=== PATIENT | female | born 1995 | race American Indian/Alaskan Native ===

== ENCOUNTER 2019-06-04 02:21 | Emergency (ER) | payer SELFPAY ==
[2019-06-04 03:09] LABS: Basophils % (Auto) 0.6 % (0.0-1.8); Eosinophils # (Auto) 0.1 K/mm3 (0.0-0.4); Eosinophils % (Auto) 1.4 % (0.0-4.3); Hematocrit 35.7 % (30.3-42.9); Lymphocytes # (Auto) 2.4 K/mm3 (1.2-5.4); Lymphocytes % (Auto) 33.6 % (13.4-35.0); Mean Corpuscular HGB Conc 34 % (30-34); Mean Corpuscular Volume 84 fl (79-97); Monocytes # (Auto) 0.4 K/mm3 (0.0-0.8); Monocytes % (Auto) 5.5 % (0.0-7.3); Platelet Count 224 K/mm3 (140-440); Red Blood Count 4.24 M/mm3 (3.65-5.03); Red Cell Distribution Width 13.7 % (13.2-15.2)
[2019-06-04 03:36] LABS: BUN/Creatinine Ratio 17; Blood Urea Nitrogen 20 mg/dL (7-17)
[2019-06-04 03:37] LABS: Alanine Aminotransferase 9 units/L (7-56); Albumin 4.2 g/dL (3.9-5); Calcium 9.3 mg/dL (8.4-10.2); Hemolysis Index 6
[2019-06-04 04:07] LABS: HCG Qualitative,Urine Negative (Negative)
[2019-06-04 04:08] LABS: Bilirubin,Urine NEG (Negative); Blood,Urine NEG (Negative); Color,Urine Yellow (Yellow); Mucus,Urine FEW /HPF; Protein,Urine <15 mg/dL mg/dL (Negative); Urobilinogen,Urine < 2.0 mg/dL (<2.0); WBC,Urine < 1.0 /HPF (0.0-6.0)
[2019-06-04 04:21] VITALS: BP 111/75
[2019-06-04] MEDS ORDERED: ROCEPHIN 250 MG in NACL 0.9% 50 ML IV STA (04:51)
[2019-06-04] MEDS ORDERED: REGLAN IV ONE (04:51)
[2019-06-04] MEDS ORDERED: FLAGYL PO ONE (04:51)
[2019-06-04] MEDS ORDERED: TYLENOL PO ONE (04:51)
[2019-06-04] MEDS ORDERED: NACL 0.9% 1000 ML 1,000 ML IV ONE (04:51)
[2019-06-04] MEDS ORDERED: ZITHROMAX PO ONE (04:51)
--- NOTE | 2019-06-04 04:53 | Emergency Department Report ---
ED General Adult HPI - General Chief complaint: Syncope Stated complaint: SOB FAST HEARTBEAT PASSED TONIGHT Time Seen by Provider: 06/04/19 03:23 Source: patient, RN notes reviewed Mode of arrival: Ambulatory Limitations: No Limitations - History of Present Illness Initial comments: this is a 24-year-old female who is not known to this provider previously. She states she is not , and has not delivered her given within the past 6 weeks. The patient denies DVT, pulmonary embolism risk factors. The patient states he has no chronic medical conditions. The patient does not have a primary care doctor. The patient presents with multiple complaints. The patient reports that she works irregular hours, and only gets 4 hours of sleep per night. She reports that she has a headache, chest tightness, palpitations, shortness of breath and may have lost consciousness. She is also feeling anxious over a recent STD exposure from a sexual partner. The headache is present basically every day. It is frontal, bitemporal and occipital. The headache is not sudden, thunderclap or maximal in intensity at the onset. Patient endorses that she typically wears her contact lenses longer than she supposed to, and this is typically associated with headache pain. She denies eye pain or loss of vision at this time. Patient reports that she felt some palpitations, chest tightness, lightheadedness, and may have almost lost consciousness. She reports chronic palpitations. She is also feeling very anxious over a recent STI exposure. She endorses some dysuria and chronic discharge. She has mild chronic lower abdominal discomfort. She is also asking for empiric STI treatment for chlamydia. -: Gradual Location: head, chest, abdomen Quality: aching Consistency: intermittent Improves with: other Worsens with: other - Related Data Allergies Allergy/AdvReac Type Severity Reaction Status Date / Time No Known Allergies Allergy Verified 06/04/19 02:26 ED Review of Systems ROS: Stated complaint: SOB FAST HEARTBEAT PASSED TONIGHT Other details as noted in HPI Constitutional: denies: fever Eyes: denies: eye discharge Respiratory: denies: wheezing Cardiovascular: chest pain, palpitations, syncope Gastrointestinal: abdominal pain. denies: vomiting Genitourinary: dysuria Musculoskeletal: myalgia Skin: denies: lesions Neurological: headache, weakness Psychiatric: anxiety ED Past Medical Hx - Past Medical History Previous Medical History?: Yes Additional medical history: anemia - Surgical History Past Surgical History?: No - Social History Smoking Status: Never Smoker Substance Use Type: Alcohol ED Physical Exam - General Limitations: No Limitations General appearance: alert, in no apparent distress - Head Head exam: Present: atraumatic, normocephalic - Eye Eye exam: Present: normal appearance, EOMI. Absent: nystagmus Pupils: Present: other (visual acuity intact to finger counting and color perception at a close distance) - ENT ENT exam: Present: normal exam, normal orophraynx, mucous membranes moist, no rmal external ear exam - Neck Neck exam: Present: normal inspection, full ROM. Absent: tenderness, meningismus - Respiratory Respiratory exam: Present: normal lung sounds bilaterally. Absent: respiratory distress - Cardiovascular Cardiovascular Exam: Present: regular rate, normal rhythm, normal heart sounds. Absent: bradycardia, tachycardia, irregular rhythm, systolic murmur, diastolic murmur, rubs, gallop - GI/Abdominal GI/Abdominal exam: Present: soft. Absent: distended, tenderness, guarding, rebound, rigid, pulsatile mass - Extremities Exam Extremities exam: Present: normal inspection, full ROM, other (2+ pulses noted in the bilateral upper, lower extremities. Compartments soft. No long bony tenderness. The pelvis is stable.). Absent: pedal edema, joint swelling, calf tenderness - Back Exam Back exam: Present: normal inspection, full ROM. Absent: tenderness, CVA tenderness (R), CVA tenderness (L), paraspinal tenderness, vertebral tenderness - Neurological Exam Neurological exam: Present: alert, oriented X3, normal gait (there is no past- pointing. There is normal [id number]. There is normal gait. There is normal tandem gait.), other (Extraocular movements intact. Tongue midline. No facial droop. Facial sensation intact to light touch in the V1, V2, V3 distribution bilaterally. 5 and 5 strength in 4 extremities.. Sensation is intact to light touch in 4 extremities.). Absent: motor sensory deficit - Psychiatric Psychiatric exam: Present: anxious - Skin Skin exam: Present: warm, dry, intact, normal color. Absent: rash ED Course Vital Signs 06/04/19 06/04/19 02:27 03:30 Temperature 97.9 F 98.2 F Pulse Rate 89 71 Respiratory 16 18 Rate Blood Pressure 123/76 Blood Pressure 111/75 [Left] O2 Sat by Pulse 99 98 Oximetry - Reevaluation(s) Reevaluation #1: 06/04/19 05:29 Differential diagnosis, including but not limited to: Sleep deprivation, orthostasis, vagal event, structural cardiac disease, dehydration, pulmonary embolism, chlamydia exposure, migraine headache, tension headache, cluster headache Assessment and plan: 24-year-old female with multiple complaints In terms of syncope/near syncope, palpitations, and chest tightness, patient has no pulmonary embolism or DVT risk factors, is low risk by well's criteria, is not tachycardic, not hypoxic and not tachypneic. Suspect sleep deprivation. However, d-dimer sent prior to my evaluation, and found to be elevated, therefore, CT scan of the chest is ordered. Unlikely to be acute coronary syndrome given young age, and unremarkable EKG 2. Patient low risk by heart score, symptoms present for greater than 8 hours. In terms of headache, mostly associated with sleep deprivation, and chronic contact lens use. GCS of 15, walking with a steady gait, nonfocal neurologic examination, no significant red flags elicited on headache history. Counseled patient that did sleep hygiene may be beneficial towards her headaches, we also discussed that she should remove her contact lenses in the timely fashion. No ocular pain, redness, pus or discharge at this time, no foreign body sensation. Patient also requesting empiric treatment for presumed chlamydia exposure. She understands that she'll need to follow up with an outpatient primary care doctor or health department for further evaluation. 06/04/19 05:29 Reevaluation #2: 06/04/19 06:05 CT scan of brain negative. CT scan of the chest was negative. Patient treated empirically. She was counseled that she would need outpatient follow-up for further STI screening. Patient has been in this ER for nearly 4 hours, without syncope, or clinical deterioration. Troponin negative. Low risk by heart score, low risk by KOFI score. ED Medical Decision Making - Lab Data Result diagrams: 06/04/19 02:53 06/04/19 02:53 Vital Signs 06/04/19 06/04/19 02:27 03:30 Temperature 97.9 F 98.2 F Pulse Rate 89 71 Respiratory 16 18 Rate Blood Pressure 123/76 Blood Pressure 111/75 [Left] O2 Sat by Pulse 99 98 Oximetry Lab Results 06/04/19 06/04/1919 Range/Units 02:53 02:53 02:53 WBC 7.2 (4.5-11.0) K/mm3 RBC 4.24 (3.65-5.03) M/mm3 Hgb 12.0 (10.1-14.3) gm/dl Hct 35.7 (30.3-42.9) % MCV 84 (79-97) fl MCH 28 (28-32) pg MCHC 34 (30-34) % RDW 13.7 (13.2-15.2) % Plt Count 224 (140-440) K/mm3 Lymph % (Auto) 33.6 (13.4-35.0) % [place] % (Auto) 5.5 (0.0-7.3) % Eos % (Auto) 1.4 (0.0-4.3) % Baso % (Auto) 0.6 (0.0-1.8) % Lymph # 2.4 (1.2-5.4) K/mm3 [place] # 0.4 (0.0-0.8) K/mm3 Eos # 0.1 (0.0-0.4) K/mm3 Baso # 0.0 (0.0-0.1) K/mm3 Seg Neutrophils % 58.9 (40.0-70.0) % Seg Neutrophils # 4.2 (1.8-7.7) K/mm3 D-Dimer 245.81 H (0-234) ng/mlDDU Sodium 139 (137-145) mmol/L Potassium 4.2 (3.6-5.0) mmol/L Chloride 101.9 (98-107) mmol/L Carbon Dioxide 24 (22-30) mmol/L Anion Gap 17 mmol/L BUN 20 H (7-17) mg/dL Creatinine 1.2 (0.7-1.2) mg/dL Estimated GFR > 60 ml/min BUN/Creatinine Ratio 17 % Glucose 100 (65-100) mg/dL Calcium 9.3 (8.4-10.2) mg/dL Magnesium (1.7-2.3) mg/dL Total Bilirubin 0.20 (0.1-1.2) mg/dL AST 12 (5-40) units/L ALT 9 (7-56) units/L Alkaline Phosphatase 53 (35-129) units/L Total Creatine Kinase (30-135) units/L Total Protein 7.2 (6.3-8.2) g/dL Albumin 4.2 (3.9-5) g/dL Albumin/Globulin Ratio 1.4 % TSH (0.270-4.200) mlU/mL Urine Color (Yellow) Urine Turbidity (Clear) Urine pH (5.0-7.0) Ur Specific [place] (1.003-1.030) Urine Protein (Negative) mg/dL Urine Glucose (UA) (Negative) mg/dL Urine Ketones (Negative) mg/dL Urine Blood (Negative) Urine Nitrite (Negative) Ur Reducing Substances Urine Bilirubin (Negative) Urine Ictotest Urine Urobilinogen (<2.0) mg/dL Ur Leukocyte Esterase (Negative) Urine WBC (Auto) (0.0-6.0) /HPF Urine RBC (Auto) (0.0-6.0) /HPF U Epithel Cells (Auto) (0-13.0) /HPF Urine Mucus /HPF Urine HCG, Qual (Negative) 06/04/19 06/04/19 06/04/19 Range/Units 03:20 04:51 04:51 WBC (4.5-11.0) K/mm3 RBC (3.65-5.03) M/mm3 Hgb (10.1-14.3) gm/dl Hct (30.3-42.9) % MCV (79-97) fl MCH (28-32) pg MCHC (30-34) % RDW (13.2-15.2) % Plt Count (140-440) K/mm3 Lymph % (Auto) (13.4-35.0) % [place] % (Auto) (0.0-7.3) % Eos % (Auto) (0.0-4.3) % Baso % (Auto) (0.0-1.8) % Lymph # (1.2-5.4) K/mm3 [place] # (0.0-0.8) K/mm3 Eos # (0.0-0.4) K/mm3 Baso # (0.0-0.1) K/mm3 Seg Neutrophils % (40.0-70.0) % Seg Neutrophils # (1.8-7.7) K/mm3 D-Dimer (0-234) ng/mlDDU Sodium (137-145) mmol/L Potassium (3.6-5.0) mmol/L Chloride (98-107) mmol/L Carbon Dioxide (22-30) mmol/L Anion Gap mmol/L BUN (7-17) mg/dL Creatinine (0.7-1.2) mg/dL Estimated GFR ml/min BUN/Creatinine Ratio % Glucose (65-100) mg/dL Calcium (8.4-10.2) mg/dL Magnesium 2.10 (1.7-2.3) mg/dL Total Bilirubin (0.1-1.2) mg/dL AST (5-40) units/L ALT (7-56) units/L Alkaline Phosphatase (35-129) units/L Total Creatine Kinase 133 (30-135) units/L Total Protein (6.3-8.2) g/dL Albumin (3.9-5) g/dL Albumin/Globulin Ratio % TSH 2.480 (0.270-4.200) mlU/mL Urine Color Yellow (Yellow) Urine Turbidity Clear (Clear) Urine pH 7.0 (5.0-7.0) Ur Specific [place] 1.023 (1.003-1.030) Urine Protein <15 mg/dl (Negative) mg/dL Urine Glucose (UA) Neg (Negative) mg/dL Urine Ketones Neg (Negative) mg/dL Urine Blood Neg (Negative) Urine Nitrite Neg (Negative) Ur Reducing Substances Not Reportable Urine Bilirubin Neg (Negative) Urine Ictotest Not Reportable Urine Urobilinogen < 2.0 (<2.0) mg/dL Ur Leukocyte Esterase Neg (Negative) Urine WBC (Auto) < 1.0 (0.0-6.0) /HPF Urine RBC (Auto) 2.0 (0.0-6.0) /HPF U Epithel Cells (Auto) 2.0 (0-13.0) /HPF Urine Mucus Few /HPF Urine HCG, Qual Negative (Negative) - EKG Data -: EKG Interpreted by Mt EKG shows normal: sinus rhythm Rate: normal - EKG Data 06/04/19 05:32 EKG #1 shows a sinus rhythm, 80 bpm, normal axis, QTC within normal limits, the EKG is abnormal, there is no prior for comparison, the EKG is not consistent with ST elevation myocardial infarction. The second EKG is unchanged from prior. - Radiology Data Radiology results: pending Critical care attestation.: If time is entered above; I have spent that time in minutes in the direct care of this critically ill patient, excluding procedure time. ED Disposition Clinical Impression: Sleep deprivation, History of syncope Does the pt Need Aspirin: No Condition: Good Instructions: Snoring (ED) Additional Instructions: Do not drive or operate motor vehicles for the next 6 months. Recommend patient follow up with an outpatient primary care doctor or director long term care for clearance to return to operating motor vehicles. Recommend 7-8 hours of good quality sleep each night. Patient should turn off all electronic devices, minimize distractions, and if necessary, may use a face mask, and or earplugs to minimize distractions. Patient may take [id number] Tylenol or ibuprofen as directed as needed for headache, chest pressure, and for physical pain. Recommend drinking 4-6 cups of water per day, and participating in physical activity and exercise is able to tolerate. Recommend follow-up with the primary care doctor or director long term care within the next 7-10 days. Return to the emergency room right away with new, worsening or different symptoms, or symptoms not present on the initial emergency room evaluation. Referrals: [facility] [Provider Group] - 3-5 Days [facility] [Provider Group] - 3-5 Days [facility] [Provider Group] - 3-5 Days [facility] [Provider Group] - 3-5 Days
--- NOTE | 2019-06-04 05:48 | Cat Scan Report ---
CT HEAD WITHOUT CONTRAST INDICATION / CLINICAL INFORMATION: headache chronic. TECHNIQUE: All CT scans at this location are performed using CT dose reduction for ALARA by means of automated e xposure control. COMPARISON: None available. FINDINGS: HEMORRHAGE: None. EXTRA-AXIAL SPACES: Normal in size and morphology for the patient's age. VENTRICULAR SYSTEM: Normal in size and morphology for the patient's age. CEREBRAL PARENCHYMA: No significant abnormality. No acute territorial infarct. MIDLINE SHIFT OR HERNIATION: None. CEREBELLUM / BRAINSTEM: No significant abnormality. ORBITS: Normal as visualized. SOFT TISSUES of HEAD: No significant abnormality. CALVARIUM: No significant abnormality. PARANASAL SINUSES / MASTOID AIR CELLS: Normal as visualized. ADDITIONAL FINDINGS: None. IMPRESSION: 1. No acute intracranial abnormality. Signer Name: Britton Noyola MD Signed: 06/04/2019 5:44 AM Workstation Name: [id number]
--- NOTE | 2019-06-04 05:52 | Cat Scan Report ---
CTA CHEST WITH IV CONTRAST INDICATION: son syncope + d dimer. TECHNIQUE: Axial CT images were obtained through the chest after injection of 100 cc Omnipaque 350 IV contrast. 3 plane MIP reconstructions were produced. All CT scans at this location are performed using CT dose reduction for ALARA by means of automated exposure control. COMPARISON: None available. FINDINGS: PULMONARY ARTERIES: No pulmonary emboli. THORACIC AORTA: No acute abnormality. HEART: Normal. CORONARY ARTERIES: No significant calcification. PLEURA: No pleural effusion. No pneumothorax. LYMPH NODES: No significant adenopathy. LUNGS: No acute air space or interstitial disease. ADDITIONAL FINDINGS: None. UPPER ABDOMEN: No acute findings. SKELETAL STRUCTURES: No significant osseous abnormality. IMPRESSION: 1. No CT evidence for pulmonary embolism. 2. No acute findings. Signer Name: Britton Noyola MD Signed: 06/04/2019 5:48 AM Workstation Name: [id number]
[2019-06-04] MEDS ORDERED: TORADOL IV ONE (06:04)
== END 2019-06-04 07:10 ==
LOC: ED 02:21
DX: R07.89 Other chest pain (principal); R51 Headache; R06.02 Shortness of breath; R42 Dizziness and giddiness; R00.2 Palpitations; Z72.820 Sleep deprivation; Z98.890 Other specified postprocedural states
CPT/HCPCS: 36415; 70450; 71275; 80053; 81001; 81025; 82550; 83735; 84443; 84484; 85025; 85379; 87086; 93005; 93010; 96365; 96375; 99284; J0696; J2765; J7030